=== PATIENT | female | born 1975 | race Caucasian/White ===

== ENCOUNTER 2025-06-18 08:48 | Emergency (ER) | payer BC ==
[2025-06-18 09:25] LABS: CORONAVIRUS COVID-19 NAA NEGATIVE (NEGATIVE); INFLUENZA A NAA NEGATIVE (NEGATIVE); INFLUENZA B NAA NEGATIVE (NEGATIVE)
[2025-06-18 09:30] LABS: STREP A BY PCR NOT DETECTED (NOT DETECT)
[2025-06-18 09:47] VITALS: BP 134/80; PULSE 95
== END 2025-06-18 09:53 | disposition home or self-care (01) ==
LOC: KA.ED 08:48
DX: J02.9 Acute pharyngitis, unspecified (principal); I10 Essential (primary) hypertension; K21.9 Gastro-esophageal reflux disease without esophagitis; E66.9 Obesity, unspecified; Z79.84 Long term (current) use of oral hypoglycemic drugs; Z79.899 Other long term (current) drug therapy; Z68.42 Body mass index [BMI] 45.0-49.9, adult
CPT/HCPCS: 87636; 87651; 99283; A9270-GY